=== PATIENT | male | born 1960 | race Caucasian/White ===

== ENCOUNTER → 2020-08-13 | Outpatient (CLI) | payer OTHER | LOC: M LAB 10:43 | PROVIDERS: ATTEND Internal Medicine Gastroenterology | DX: R13.12 Dysphagia, oropharyngeal phase (principal) ==

== ENCOUNTER → 2020-10-16 | Outpatient (CLI) | payer OTHER ==
[~2020-10-16] MED LIST: ADME100I SQ; ARIP1TAB; BUPR150T3; CETI10CH4; DICY10CA13; GABA600T4; LISI-538; LOVA20TA2; OMEP-221; SERT-138; TAMS1CAP17
== END ==
LOC: M LABSMTC 11:12
PROVIDERS: ATTEND Anesthesiology
DX: Z01.812 Encounter for preprocedural laboratory examination (principal); Z20.828 Contact with and (suspected) exposure to other viral communicable diseases

== ENCOUNTER 2020-10-21 11:24 | Day surgery (SDC) | payer OTHER ==
[~2020-10-21] VITALS: Ht 177.8 cm; Wt 102.5 kg
[~2020-10-21 11:24] MED LIST changes: +LIDOCAINE 2% 100MG/5ML SDV (FOR ANES.) As Ordered ONE; +NS 1,000 ML IV ONE; +fentaNYL 100 MCG/2 ML INJECTION (J3010) As Ordered ONE; +propofoL 200 MG/20 ML VIAL As Ordered ONE
[2020-10-21] MEDS ORDERED: ePHEDrine SULFATE 25 MG/5 ML(5MG/ML) SYRINGE As Ordered ONE (13:15)
--- NOTE | 2020-10-21 13:23 | ROOR ---
Patient Name: Evan Welch Procedure Date: 10/21/2020 1:04 PM Date of : 1960 Age: 60 Room: [facility] Gender: Male Note Status: Finalized Procedure: Upper GI endoscopy Indications: Dysphagia Providers: Johnnie VERDE MD Referring MD: Sushma VALENTE MD Requesting Provider: Medicines: Monitored Anesthesia Care Complications: No immediate complications. Procedure: Pre-Anesthesia Assessment: - The heart rate, respiratory rate, oxygen saturations, blood pressure, adequacy of pulmonary ventilation, and response to care were monitored throughout the procedure. The Endoscope was introduced through the mouth, and advanced to the second part of duodenum. The upper GI endoscopy was accomplished without difficulty. The patient tolerated the procedure well. Findings: No endoscopic abnormality was evident in the esophagus to explain the patient's complaint of dysphagia. It was decided, however, to proceed with dilation of the entire esophagus. The scope was withdrawn. Dilation was performed with a Iglesias dilator with no resistance at 54 Fr. The examined esophagus was normal. This was biopsied with a cold forceps for evaluation of eosinophilic esophagitis. The Z-line was variable and was found 37 cm from the incisors. This was biopsied with a cold forceps for histology. Very small (insignificant) Hiatal Hernia. The entire examined stomach was normal. The examined duodenum was normal. Impression: - No endoscopic esophageal abnormality to explain patient's dysphagia. Esophagus dilated with 54F Iglesias dilator. - Z-line variable, 37 cm from the incisors. Biopsied. - Otherwise normal esophagus. Biopsied. - Very small (insignificant) Hiatal Hernia. - Normal stomach. - Normal examined duodenum. Recommendation: - Observe patient's clinical course. - Continue present medications. - Telephone endoscopist for pathology results in 2 weeks. Procedure Code(s): --- Professional --- 79204, Esophagogastroduodenoscopy, flexible, transoral; with biopsy, single or multiple 46623, Dilation of esophagus, by unguided sound or bougie, single or multiple passes Diagnosis Code(s): --- Professional --- K22.8, Other specified diseases of esophagus R13.10, Dysphagia, unspecified CPT copyright 2019 [employer]. All rights reserved. The codes documented in this report are preliminary and upon remote coders review may be revised to meet current compliance requirements. Johnnie Verde MD Johnnie VERDE MD 10/21/2020 1:23:08 PM Electronically signed by Johnnie VERDE MD Number of Addenda: 0 Note Initiated On: 10/21/2020 1:04 PM Estimated Blood Loss: Estimated blood loss: none.
--- NOTE | 2020-10-21 13:41 | ROOR ---
Patient Name: Evan Welch Procedure Date: 10/21/2020 1:04 PM Date of : 1960 Age: 60 Room: [facility] Gender: Male Note Status: Finalized Procedure: Colonoscopy Indications: Suspected irritable bowel syndrome, Change in bowel habits Providers: Johnnie VERDE MD Referring MD: Sushma VALENTE MD Requesting Provider: Medicines: Monitored Anesthesia Care Complications: No immediate complications. Procedure: Pre-Anesthesia Assessment: - The heart rate, respiratory rate, oxygen saturations, blood pressure, adequacy of pulmonary ventilation, and response to care were monitored throughout the procedure. The Colonoscope was introduced through the anus and advanced to 10 cm into the ileum. The colonoscopy was performed without difficulty. The patient tolerated the procedure well. The quality of the bowel preparation was good. Findings: The perianal and digital rectal examinations were normal. Small Internal Hemorrhoids. Retroflexion in the right colon was performed. The colon (entire examined portion) appeared normal. The terminal ileum appeared normal. Biopsies for histology were taken with a cold forceps for evaluation of microscopic colitis. Impression: - Small Internal Hemorrhoids. - The entire examined colon is normal. - The examined portion of the ileum was normal. - Biopsies were taken with a cold forceps for evaluation of microscopic colitis. - (Irritable Bowel Syndrome/IBS suspected.) Recommendation: - Telephone endoscopist for pathology results in 2 weeks. - Continue present medications. Procedure Code(s): --- Professional --- 19241, Colonoscopy, flexible; with biopsy, single or multiple Diagnosis Code(s): --- Professional --- R19.4, Change in bowel habit CPT copyright 2019 [employer]. All rights reserved. The codes documented in this report are preliminary and upon financial services technician review may be revised to meet current compliance requirements. Johnnie Verde MD Johnnie VERDE MD 10/21/2020 1:40:50 PM Electronically signed by Johnnie VERDE MD Number of Addenda: 0 Note Initiated On: 10/21/2020 1:04 PM Estimated Blood Loss: Estimated blood loss: none.
[2020-10-21 14:15] VITALS: BP 126/67
== END 2020-10-21 14:25 | disposition home or self-care (01) ==
LOC: M OPP 11:24
PROVIDERS: ATTEND Internal Medicine Gastroenterology
DX: R19.4 Change in bowel habit (principal); K22.8 Other specified diseases of esophagus; R13.10 Dysphagia, unspecified; K64.0 First degree hemorrhoids; K44.9 Diaphragmatic hernia without obstruction or gangrene; E11.9 Type 2 diabetes mellitus without complications; Z79.899 Other long term (current) drug therapy; Z96.41 Presence of insulin pump (external) (internal)
CPT/HCPCS: 43239; 43450; 45380; 88305; J3010

== ENCOUNTER → 2021-04-04 | Outpatient (CLI) | payer OTHER ==
[~2021-04-04] MED LIST changes: +BUPR150T12; -BUPR150T3; -LIDOCAINE 2% 100MG/5ML SDV (FOR ANES.) As Ordered ONE; -LISI-538; +LISI20TA33; -NS 1,000 ML IV ONE; -fentaNYL 100 MCG/2 ML INJECTION (J3010) As Ordered ONE; -propofoL 200 MG/20 ML VIAL As Ordered ONE
--- NOTE | 2021-04-09 01:25 | ECWPNPC ---
PATIENT NAME: JENN MCELROY : 1960 GENDER: MALE VISIT DATE: 04/04/2021 DISCHARGE DATE: 04/04/21 1344 VISIT LOCKED DATE TIME: PHYSICIAN: LOS DIAZ RESOURCE: LOS DIAZ REASON FOR APPOINTMENT 1. CHRONIC BILATERAL LEG PAIN HISTORY OF PRESENT ILLNESS DEPRESSION SCREENING: PHQ-9 LITTLE INTEREST OR PLEASURE IN DOING THINGSMORE THAN HALF THE DAYS FEELING DOWN, DEPRESSED, OR HOPELESSNOT AT ALL TROUBLE FALLING OR STAYING ASLEEP, OR SLEEPING TOO MUCHNEARLY EVERY DAY FEELING TIRED OR HAVING LITTLE ENERGYNEARLY EVERY DAY POOR APPETITE OR OVEREATING SEVERAL DAYS FEELING BAD ABOUT YOURSELF-OR THAT YOU ARE A FAILURE OR HAVE LET YOURSELF OR YOUR FAMILY DOWN NOT AT ALL TROUBLE CONCENTRATING ON THINGS, SUCH READING THE NEWSPAPER OR WATCHING TELEVISION NEARLY EVERY DAY MOVING OR SPEAKING SO SLOWLY THAT OTHER PEOPLE COULD HAVE NOTICED. OR THE OPPOSITE- BEING SO FIDGETY OR RESTLESS THAT YOU HAVE BEEN MOVING AROUND A LOT MORE THAN USUALMORE THAN HALF THE DAYS THOUGHTS THAT YOU WOULD BE BETTER OFF , OR OF HURTING YOURSELF IN SOME WAY?NOT AT ALL TOTAL SCORE:14 INTERPRETATIONMODERATE DEPRESSION PHQ-2 (2015 EDITION) LITTLE INTEREST OR PLEASURE IN DOING THINGS?MORE THAN HALF THE DAYS FEELING DOWN, DEPRESSED, OR HOPELESS?NOT AT ALL TOTAL SCORE2 GENERAL: HPI 61-YEAR-OLD MALE IN FOR INITIAL PAIN CONSULT REGARDING CHRONIC BILATERAL LEG PAIN. PATIENT ADMITS THE PAIN HAS BEEN PRESENT FOR APPROXIMATELY 20 YEARS. HE WAS STARTED ON LYRICA PREVIOUSLY AND ADMITTED THAT IT WAS BENEFICIAL HOWEVER HIS INSURANCE COMPANY DENIED PAYMENT SHORTLY AFTER STARTING THIS MEDICATION. HE RATES HIS PAIN CURRENTLY AT AN 8 OUT OF 10.. -. FALL RISK SCREENING: SCREENING : NO FALLS REPORTED IN THE LAST YEAR. PAIN SCREENING: PATIENT HAS A COMPLAINT OF ACUTE OR CHRONIC PAIN :YES LOCATION OF PAIN:LEFT HIP, RIGHT HIP, LEG(S) INTENSITY OF PAIN (SCALE OF 1 TO 10):8 BASELINE IS AN 8 WHAT DOES YOUR PAIN FEEL LIKE:ACHING, BURNING, CONTINOUS, SHARP, STABBING, TENDER, THROBBING, SORE, SHOOTING DURATION:CONTINOUS PAIN IS INCREASED BY:ACTIVITIES, PROLONGED STANDING PAIN IS DECREASED BY:SITTING, OTHERS NURSING NOTE: -. PAIN CENTER INTAKE QUESTIONS: DO YOU HAVE A HISTORY OF MRSA? :NO DO YOU TAKE A BLOOD THINNERS? :NO DO YOU HAVE ANY BLEEDING DISORDERS? :NO ANY NEW NUMBNESS OR WEAKNESS IN YOUR LEGS OR ARMS? :NO ANY PACEMAKER,DEFIBRILLATOR, OR DORSAL COLUMN STIMULATOR? :NO DO YOU HAVE ANY RASHES OR OPEN SORES? :NO ARE YOU ALLERGIC TO IV DYE? :NO ARE YOU DIABETIC? :YES TYPE I JUVENILE ANY NEW PROBLEMS WITH YOUR MEDICATIONS? :NO HAVE YOU RECEIVED A VACCINE IN THE PAST 30 DAYS? :YES IF SO WHAT VACCINE AND WHEN? SECOND COVID VACCINATION 03/21/2021 DO YOU PLAN TO RECEIVE A VACCINE IN THE NEXT 21 DAYS? :NO DO YOU NEED ANY PRESCRIPTION? :NO DO YOU TAKE ANY IMMUNOSUPPRESSIVE MEDICATIONS? :NO DO YOU HAVE ANY KIDNEY OR LIVER DISEASE? :NO IS THERE A CHANCE YOU COULD BE ? :NO ARE YOU BREAST FEEDING? :NO CURRENT MEDICATIONS TAKING TAMSULOSIN HCL 0.4 MG CAPSULE 1 CAPSULE ORALLY ONCE A DAY TAKING ADMELOG 100 UNIT/ML SOLUTION DIRECTED SUBCUTANEOUS TAKING LORATADINE 10 MG TABLET 1 TABLET ORALLY ONCE A DAY TAKING ARIPIPRAZOLE 15 MG TABLET ORAL TAKING OMEPRAZOLE 40 MG CAPSULE DELAYED RELEASE ORAL TAKING GABAPENTIN 600 MG TABLET ORAL THREE TIMES DAILY NEEDED TAKING TAMSULOSIN HCL 0.4 MG CAPSULE ORAL BID TAKING LOVASTATIN 20 MG TABLET ORAL TAKING LISINOPRIL 20 MG TABLET ORAL TAKING SERTRALINE HCL 100 MG TABLET ORAL BID TAKING MECLIZINE HCL 25 MG TABLET 1 TABLET NEEDED ORALLY 3 TIMES A DAY NEEDED FOR VERTIGO EPISODES TAKING CETIRIZINE HCL 10 MG TABLET CHEWABLE 1 TABLET ORALLY ONCE A DAY TAKING EPIPEN 2-GLADIS 0.3 MG/0.3ML SOLUTION AUTO-INJECTOR DIRECTED INJECTION 1 INJECTION INTRAMUSCULARLY NEEDED FOR RESPIRATORY DISTRESS NOT-TAKING PREDNISONE 1 TAB ORAL , NOTES: 03/22/19 NOT-TAKING BUPROPION HCL ER (XL) 150 MG TABLET EXTENDED RELEASE 24 HOUR ORAL MEDICATION LIST REVIEWED AND RECONCILED WITH THE PATIENT PAST MEDICAL HISTORY ESSENTIAL HYPERTENSION PURE HYPERCHOLESTEROLEMIA DEPRESSIVE DISORDER OBESITY ANXIETY STATE CHRONIC PAIN SYNDROME DIABETIC NEUROPATHY PTSD CHARCOT'S JOINT OF FOOT HAMMER TOE DYSTROPHIA UNGULUM HALLUX VAGUS TYPE 1 DIABETES MELLITUS LOSS OF HYPOGLYCEMIC WARNING RECURRENT MAJOR DEPRESSIVE EPISODES HART'S ESOPHAGUS ALLERGIES N.K.D.A. SURGICAL HISTORY ENDOSCOPY 10/2020 KNEE ARTHROSCOPY VASECTOMY KNEE REPLACEMENT FAMILY HISTORY FATHER: , DIAGNOSED WITH UNSPECIFIED HEART DISEASE MOTHER: ALIVE, HYPERTENSION SIBLINGS: ALIVE 2 BROTHER(S) - HEALTHY. 1 SON(S) , 1 DAUGHTER(S) - HEALTHY. FATHER -LUNG CANCER. SOCIAL HISTORY GENERAL: TOBACCO USE ARE YOU A:FORMER SMOKER LATEX QUESTIONNAIRE LATEX ALLERGY : HAVE YOU EVER DEVELOPED ANY TYPE OF REACTION AFTER HANDLING LATEX PRODUCTS SUCH RUBBER GLOVES, CONDOMS, DIAPHRAGMS, BALLOONS, SOCKS, OR UNDERWEAR?NO LATEX ALLERGY : HAVE YOU EVER DEVELOPED ANY TYPE OF REACTION DURING OR AFTER DENTAL APPOINTMENT, VAGINAL/RECTAL EXAMINATION, SURGICAL PROCEDURE, OR ANY OTHER EXPOSURE?NO LATEX RISK : HAVE YOU EVER HAD ANY DIFFICULTY BREATHING OR HIVES AFTER EATING OR HANDLING ANY FRUITS, OR VEGETABLES; SUCH KIWI, BANANAS, STONE FRUITS, OR CHESTNUTSNO LATEX RISK : DO YOU HAVE A PREVIOUS PERSONAL HISTORY OF MORE THAN NINE SURGERIES, SPINA BIFIDA, OR REPEATED CATHERIZATIONS? NO LATEX RISK : ARE YOU FREQUENTLY EXPOSED TO LATEX PRODUCTS IN YOUR OCCUPATION?NO DATE ASKED : 04/04/2021 ALCOHOL USE: NO. RECREATIONAL DRUG USE DRUG USE? MARIJUANA TRIED FOR THE FIRST TIME FOR PAIN 03/22/2021 LANGUAGE LANGUAGES SPOKEN:WELSH EDUCATION LEVEL OF EDUCATION:HIGH SCHOOL LEARNING BARRIERS / SPECIAL NEEDS BARRIERS TO LEARNING?NO HEARING IMPAIRED?NO VISION IMPAIRED?NO COGNITIVELY IMPAIRED?NO READINESS TO LEARN?YES LEARNING CAPABILITIES PRESENT?YES EMOTIONAL BARRIERS?YES DEPRESSION, ANXIETY SPECIAL DEVICES?YES :CANE, BRACE LEFT KNEE BRACE UPPER CUTTER NEEDED?NO OCCUPATION: DISABLED.. HOSPITALIZATION/MAJOR DIAGNOSTIC PROCEDURE SURGERY RELATED DIABETES REVIEW OF SYSTEMS CONSTITUTIONAL: ANY RECENT FEVER NO . CHILLS NO . WEIGHT CHANGE OF UNKNOWN REASONS NO . MUSCULOSKELETAL: ANY UNUSUAL JOINT PAIN OR SWELLING NOT MENTIONED NO . SYSTEMIC LUPUS NO . ANY NEUROMUSCULAR DISORDER NOT MENTIONED NO . LYME DISEASE NO . GASTROENTEROLOGY: ANY NEW CHANGE IN BOWEL CONTROL? NO . HISTORY OF LIVER DISORDER NOT MENTIONED NO . HISTORY OF UNUSUAL ABDOMINAL PAIN OR CRAMPING NOT MENTIONED NO . NO CONSTIPATION. GENITOURINARY: ANY NEW CHANGE IN BLADDER CONTROL? NO . ANY RENAL/KIDNEY CONDITON NOT MENTIONED NO . NEUROLOGY: HISTORY OF TBI NOT MENTIONED NO . OTHER NEW NUMBNESS OR PAIN PATTERNS NOT MENTIONED NO . NEW ONSET DIZZINESS OR NEUROLOGICAL CHANGES NOT MENTIONED NO . HISTORY OF SEVERE HEADACHES NOT MENTIONED NO . HISTORY OF STROKE OR NEUROLOGICAL DISORDER NOT MENTIONED NO . CARDIOLOGY: HEART SURGERY NO . CONGESTIVE HEART FAILURE/FLUID OVERLOAD NOT MENTIONED NO . HISTORY OF CHEST PAIN,IRREGULAR HEART BEAT NOT MENTIONED NO . RESPIRATORY: SHORTNESS OF BREATH ON EXERTION, WHEEZES, UNUSUAL COUGH NOT MENTIONED NO . ENDOCRINOLOGY: ADRENAL GLAND OR THYROID DISORDERS NOT MENTIONED NO . UNUSUAL URINATION, DIZZINESS OR LETHARGY NOT MENTIONED NO . VITAL SIGNS WT 231 LBS, HT 62 IN, BMI 42.25 INDEX, BP 128/73 MM HG, HR 67 /MIN, RR 18 /MIN, TEMP 98.1 F, OXYGEN SAT % 94%, SAFE IN ENV? (Y/N) YES, NA INITIALS UT 12:51, REVIEWED BY: BURTON JACOB MA. EXAMINATION GENERAL EXAMINATION: GENERALNO ACUTE DISTRESS, WELL NOURISHED AND HYDRATED. PSYCHAPPROPRIATE MOOD AND AFFECT . LUNGS:CLEAR TO AUSCULTATION BILATERALLY, NO WHEEZES, RHONCHI, RALES. HEART:NO MURMURS, REGULAR RATE AND RHYTHM. BACK: POINT TENDER ALONG LUMBAR SPINE, SURROUNDING SKIN SHOWS NO ERYTHEMA, ECCHYMOSIS, INCREASED WARMTH, AND/OR SKIN ERUPTIONS NOTED. POSITIVE BILATERAL MODIFIED SLR. ASSESSMENTS LOW BACK PAIN - M54.5 (PRIMARY) TREATMENT OTHERS START LYRICA CAPSULE, 75 MG, 1 CAPSULE, ORALLY, TWICE DAILY, 30 DAYS, 60 NOTES: 61-YEAR-OLD MALE IN FOR INITIAL PAIN CONSULT AND BILATERAL LEG PAIN. GIVEN PRESENTING SYMPTOMS RECOMMEND TAPERING DOSE OF GABAPENTIN FOLLOWS 600 MG TWICE A DAY X1 WEEK THEN 600 MG DAILY X1 WEEK THEN 600 MG EVERY OTHER DAY X1 WEEK THEN STOP. FURTHER RECOMMENDED STARTING LYRICA 75 MG TWICE A DAY PATIENT HAS TRIALED AND FAILED GABAPENTIN WITH FOLLOW-UP IN ONE MONTH TO DETERMINE EFFICACY TREATMENT. PATIENT HAS EXPRESSED UNDERSTANDING OF AND WAS IN AGREEMENT WITH TREATMENT PLAN. GIVEN TIME TO ASK QUESTIONS AND EXPRESS CONCERNS. PROCEDURE CODES FA211 ESTABILISHED PATIENT [facility] CHARGE DISPOSITION & COMMUNICATION FOLLOW UP 4 WEEKS (REASON: NEW MED ) ELECTRONICALLY SIGNED BY DARLENE BACA ON 04/08/2021 AT 11:01 AM EDT DISCLAIMER : THIS IS A VISIT SUMMARY EXTRACTED FROM THE [email or web address] CHART. IT IS NOT A COPY OF THE [email or web address] PROGRESS NOTE. KOLE
== END ==
LOC: M PAIN 13:00
PROVIDERS: ATTEND Family Medicine
DX: M54.5 Low back pain (principal); G89.29 Other chronic pain; E10.9 Type 1 diabetes mellitus without complications; Z86.59 Personal history of other mental and behavioral disorders; Z87.891 Personal history of nicotine dependence; E66.01 Morbid (severe) obesity due to excess calories; Z68.41 Body mass index [BMI] 40.0-44.9, adult; Z79.899 Other long term (current) drug therapy

== ENCOUNTER → 2021-04-30 | Outpatient (CLI) | payer OTHER ==
--- NOTE | 2021-05-02 02:37 | ECWPNPC ---
PATIENT NAME: JENN MCELROY : 1960 GENDER: MALE VISIT DATE: 04/30/2021 DISCHARGE DATE: 04/30/21 1442 VISIT LOCKED DATE TIME: PHYSICIAN: LOS DIAZ RESOURCE: LOS DIAZ REASON FOR APPOINTMENT 1. NEW MED HISTORY OF PRESENT ILLNESS GENERAL: HPI 61-YEAR-OLD MALE IN FOR CHRONIC PAIN FOLLOW-UP. AT LAST CLINIC VISIT PATIENT WAS STARTED ON LYRICA AND HE ADMITS TODAY THAT THIS HAS BEEN BENEFICIAL HOWEVER HE STILL EXPERIENCES BREAKTHROUGH PAIN. HE RATES HIS PAIN CURRENTLY AT AN 8 OUT OF 10.. -. FALL RISK SCREENING: SCREENING : NO FALLS REPORTED IN THE LAST YEAR. PAIN SCREENING: PATIENT HAS A COMPLAINT OF ACUTE OR CHRONIC PAIN :YES LOCATION OF PAIN:LEG(S) INTENSITY OF PAIN (SCALE OF 1 TO 10):8 WHAT DOES YOUR PAIN FEEL LIKE:BURNING, THROBBING, SHOOTING, OTHER DURATION:CONTINOUS, AWAKENS FROM SLEEP PAIN IS INCREASED BY:ACTIVITIES, PROLONGED STANDING PAIN IS DECREASED BY:USE OF PAIN MEDICATIONS, SITTING NURSING NOTE: -. PAIN CENTER INTAKE QUESTIONS: DO YOU HAVE A HISTORY OF MRSA? :NO DO YOU TAKE A BLOOD THINNERS? :NO DO YOU HAVE ANY BLEEDING DISORDERS? :NO ANY NEW NUMBNESS OR WEAKNESS IN YOUR LEGS OR ARMS? :NO ANY PACEMAKER,DEFIBRILLATOR, OR DORSAL COLUMN STIMULATOR? :NO DO YOU HAVE ANY RASHES OR OPEN SORES? :NO ARE YOU ALLERGIC TO IV DYE? :NO ARE YOU DIABETIC? :YES TYPE I JUVENILE ANY NEW PROBLEMS WITH YOUR MEDICATIONS? :NO HAVE YOU RECEIVED A VACCINE IN THE PAST 30 DAYS? :NO SECOND COVID VACCINATION 03/07/2021 DO YOU PLAN TO RECEIVE A VACCINE IN THE NEXT 21 DAYS? :NO DO YOU NEED ANY PRESCRIPTION? :NO DO YOU TAKE ANY IMMUNOSUPPRESSIVE MEDICATIONS? :NO DO YOU HAVE ANY KIDNEY OR LIVER DISEASE? :NO IS THERE A CHANCE YOU COULD BE ? :NO ARE YOU BREAST FEEDING? :NO CURRENT MEDICATIONS TAKING TAMSULOSIN HCL 0.4 MG CAPSULE 1 CAPSULE ORALLY ONCE A DAY TAKING ADMELOG 100 UNIT/ML SOLUTION DIRECTED SUBCUTANEOUS TAKING LORATADINE 10 MG TABLET 1 TABLET ORALLY ONCE A DAY TAKING ARIPIPRAZOLE 15 MG TABLET ORAL TAKING OMEPRAZOLE 40 MG CAPSULE DELAYED RELEASE ORAL TAKING GABAPENTIN 600 MG TABLET ORAL THREE TIMES DAILY NEEDED TAKING TAMSULOSIN HCL 0.4 MG CAPSULE ORAL BID TAKING LOVASTATIN 20 MG TABLET ORAL TAKING LISINOPRIL 20 MG TABLET ORAL TAKING SERTRALINE HCL 100 MG TABLET ORAL BID TAKING MECLIZINE HCL 25 MG TABLET 1 TABLET NEEDED ORALLY 3 TIMES A DAY NEEDED FOR VERTIGO EPISODES TAKING CETIRIZINE HCL 10 MG TABLET CHEWABLE 1 TABLET ORALLY ONCE A DAY TAKING EPIPEN 2-GLADIS 0.3 MG/0.3ML SOLUTION AUTO-INJECTOR DIRECTED INJECTION 1 INJECTION INTRAMUSCULARLY NEEDED FOR RESPIRATORY DISTRESS TAKING LYRICA 75 MG CAPSULE 1 CAPSULE ORALLY TWICE DAILY NOT-TAKING PREDNISONE 1 TAB ORAL , NOTES: 03/22/19 NOT-TAKING BUPROPION HCL ER (XL) 150 MG TABLET EXTENDED RELEASE 24 HOUR ORAL MEDICATION LIST REVIEWED AND RECONCILED WITH THE PATIENT PAST MEDICAL HISTORY ESSENTIAL HYPERTENSION PURE HYPERCHOLESTEROLEMIA DEPRESSIVE DISORDER OBESITY ANXIETY STATE CHRONIC PAIN SYNDROME DIABETIC NEUROPATHY PTSD CHARCOT'S JOINT OF FOOT HAMMER TOE DYSTROPHIA UNGULUM HALLUX VAGUS TYPE 1 DIABETES MELLITUS LOSS OF HYPOGLYCEMIC WARNING RECURRENT MAJOR DEPRESSIVE EPISODES HART'S ESOPHAGUS ALLERGIES N.K.D.A. SOCIAL HISTORY GENERAL: TOBACCO USE ARE YOU A:FORMER SMOKER LATEX QUESTIONNAIRE LATEX ALLERGY : HAVE YOU EVER DEVELOPED ANY TYPE OF REACTION AFTER HANDLING LATEX PRODUCTS SUCH RUBBER GLOVES, CONDOMS, DIAPHRAGMS, BALLOONS, SOCKS, OR UNDERWEAR?NO LATEX ALLERGY : HAVE YOU EVER DEVELOPED ANY TYPE OF REACTION DURING OR AFTER DENTAL APPOINTMENT, VAGINAL/RECTAL EXAMINATION, SURGICAL PROCEDURE, OR ANY OTHER EXPOSURE?NO LATEX RISK : HAVE YOU EVER HAD ANY DIFFICULTY BREATHING OR HIVES AFTER EATING OR HANDLING ANY FRUITS, OR VEGETABLES; SUCH KIWI, BANANAS, STONE FRUITS, OR CHESTNUTSNO LATEX RISK : DO YOU HAVE A PREVIOUS PERSONAL HISTORY OF MORE THAN NINE SURGERIES, SPINA BIFIDA, OR REPEATED CATHERIZATIONS? NO LATEX RISK : ARE YOU FREQUENTLY EXPOSED TO LATEX PRODUCTS IN YOUR OCCUPATION?NO DATE ASKED : 04/30/2021 ALCOHOL USE: NO. RECREATIONAL DRUG USE DRUG USE? 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 REVIEW OF SYSTEMS CONSTITUTIONAL: ANY RECENT FEVER NO . CHILLS NO . WEIGHT CHANGE OF UNKNOWN REASONS NO . GASTROENTEROLOGY: NEW UNEXPLAINABLE CHANGES IN BOWEL CONTROL NO . CONSTIPATION NO . GENITOURINARY: ANY NEW CHANGE IN BLADDER CONTROL? NO . NEUROLOGY: NEW ONSET DIZZINESS OR NEUROLOGICAL CHANGES NOT MENTIONED NO . NEW NUMBNESS OR PAIN PATTERNS NOT MENTIONED AND PERTINENT TO TODAY'S VISIT NO . CARDIOLOGY: NEW CHEST PRESSURE NO . PATIENT DENIES NO . RESPIRATORY: UNEXPLAINABLE COUGH NO . NEW SHORTNESS OF BREATH NO . VITAL SIGNS WT 235 LBS, HT 62 IN, BMI 42.98 INDEX, BP 130/67 MM HG, HR 80 /MIN, RR 18 /MIN, TEMP 98.1 F, OXYGEN SAT % 96%, SAFE IN ENV? (Y/N) YES, NA INITIALS LA 14:11, REVIEWED BY: BURTON JACOB MA. EXAMINATION GENERAL EXAMINATION: GENERALNO ACUTE DISTRESS, WELL NOURISHED AND HYDRATED. PSYCHAPPROPRIATE MOOD AND AFFECT . LUNGS:CLEAR TO AUSCULTATION BILATERALLY, NO WHEEZES, RHONCHI, RALES. HEART:NO MURMURS, REGULAR RATE AND RHYTHM. ASSESSMENTS LOW BACK PAIN - M54.5 (PRIMARY) TREATMENT LOW BACK PAIN STOP GABAPENTIN TABLET, 600 MG, ORAL, THREE TIMES DAILY NEEDED INCREASE LYRICA CAPSULE, 100 MG, 1 CAPSULE, ORALLY, TWICE DAILY, 30 DAYS, 60 NOTES: 61-YEAR-OLD MALE IN FOR CHRONIC PAIN FOLLOW-UP. GIVEN PRESENTING SYMPTOMS RECOMMENDED INCREASING LYRICA TO 100 MG TWICE A DAY WITH FOLLOW-UP IN 3 MONTHS. PATIENT HAS EXPRESSED UNDERSTANDING OF AND WAS IN AGREEMENT WITH TREATMENT PLAN. GIVEN TIME ASK QUESTIONS AND EXPRESS CONCERNS. [employer] REGISTRY REVIEWED AND DEMONSTRATES COMPLLIANCE. (REF # [id number] ) BRINGS IN MEDICATIONS WHICH IS APPROPRIATE FOR WHAT WAS DISPENSED. RECENT URINE TOXICOLOGY REVIEWED. NO UNAUTHORIZED MEDICATIONS. NO ILLICIT SUBSTANCES AND PRESCRIBED MEDICATIONS WERE PRESENT. PROCEDURE CODES FA211 ESTABILISHED PATIENT [facility] CHARGE DISPOSITION & COMMUNICATION FOLLOW UP 3 MONTHS (REASON: BACK PAIN ) ELECTRONICALLY SIGNED BY DARLENE BACA ON 05/01/2021 AT 08:28 AM EDT DISCLAIMER : THIS IS A VISIT SUMMARY EXTRACTED FROM THE [employer] CHART. IT IS NOT A COPY OF THE [employer] PROGRESS NOTE. KOLE
== END ==
LOC: M PAIN 14:15
PROVIDERS: ATTEND Family Medicine
DX: M54.5 Low back pain (principal); G89.29 Other chronic pain; E10.40 Type 1 diabetes mellitus with diabetic neuropathy, unspecified; Z86.59 Personal history of other mental and behavioral disorders; Z87.891 Personal history of nicotine dependence; E66.01 Morbid (severe) obesity due to excess calories; Z68.41 Body mass index [BMI] 40.0-44.9, adult; Z79.4 Long term (current) use of insulin; Z79.899 Other long term (current) drug therapy

== ENCOUNTER → 2021-08-01 | Outpatient (CLI) | payer OTHER ==
[~2021-08-01] MED LIST changes: +ARIP10TA32; -ARIP1TAB
== END ==
LOC: M PAIN 14:00
PROVIDERS: ATTEND Anesthesiology
DX: M54.5 Low back pain (principal); M79.10 Myalgia, unspecified site; M79.18 Myalgia, other site; M54.6 Pain in thoracic spine; E10.40 Type 1 diabetes mellitus with diabetic neuropathy, unspecified; I10 Essential (primary) hypertension; E78.00 Pure hypercholesterolemia, unspecified; F32.9 Major depressive disorder, single episode, unspecified; E66.9 Obesity, unspecified; F41.9 Anxiety disorder, unspecified; G89.4 Chronic pain syndrome; F43.10 Post-traumatic stress disorder, unspecified; K22.70 Barrett's esophagus without dysplasia; E10.610 Type 1 diabetes mellitus with diabetic neuropathic arthropathy; Z87.891 Personal history of nicotine dependence; Z79.899 Other long term (current) drug therapy

== ENCOUNTER → 2021-08-01 | Outpatient (CLI) | payer OTHER ==
--- NOTE | 2021-08-01 16:16 | REP ---
INDICATION: LOW BACK PAIN. COMPARISON: None. TECHNIQUE: Three views of the thoracic spine. FINDINGS: Thoracic vertebral body heights are preserved. Alignment is normal. There is moderate discogenic spurring anteriorly and along the right lateral margin of the mid and lower thoracic spine levels. Pedicles and posterior elements are intact. Swimmer's lateral view shows no additional abnormality. No paravertebral soft tissue mass is seen. IMPRESSION: Moderate degenerative disc changes in the thoracic spine. No acute bony abnormality. <Electronically signed by Dedrick Hernandez > 08/01/21 [id number]
--- NOTE | 2021-08-01 16:18 | REP ---
INDICATION: LOW BACK PAIN. COMPARISON: None. TECHNIQUE: Seven views of the lumbar spine are presented including flexion extension lateral views. FINDINGS: Lumbar vertebral body heights are preserved. No subluxation or instability is seen on flexion extension views. There is no evidence of spondylolysis or spondylolisthesis. There is mild degenerative disc change at L3-4 and L4-5. Discogenic spurring is seen at the thoracolumbar junction as well. Pedicles and posterior elements are intact. Psoas margins are symmetric. Sacrum and SI joints are unremarkable. There is a 10 mm intrarenal calculus in the right kidney. IMPRESSION: Mild degenerative spondylosis changes. Intrarenal nephrolithiasis right kidney. <Electronically signed by Dedrick Hernandez > 08/01/21 [id number]
== END ==
LOC: M RAD 15:33
PROVIDERS: ATTEND Anesthesiology
DX: N20.0 Calculus of kidney (principal); M54.5 Low back pain

== ENCOUNTER → 2021-08-19 | Outpatient (CLI) | payer OTHER ==
--- NOTE | 2021-08-19 13:47 | REP ---
INDICATION: PROSTATE Difficulty urinating. COMPARISON: None. TECHNIQUE: Transrectal ultrasound examination. FINDINGS: Examination demonstrates mildly heterogeneous gland measuring 3.9 x 2.1 x 4.2 cm (18 ml). No significant focal lesions are identified. IMPRESSION: 1. Relatively normal appearing prostate gland. <Electronically signed by Rene Field > 08/19/21 [id number]
--- NOTE | 2021-08-19 14:04 | REP ---
INDICATION: HESITANCY OF MICTURITION COMPARISON: None TECHNIQUE: Real time B-mode ultrasound examination using curved array transducer. FINDINGS: Bladder is normal in appearance without wall thickening or mass lesion. Bilateral ureteral jets are identified. Prevoid bladder measures 10.3 x 6.4 x 6.8 cm (293 cc). Postvoid bladder measures 3.9 x 3.5 x 1.7 cm (59 cc). Postvoid residual: 20% IMPRESSION: 1. Mildly prominent postvoid residual volume to the bladder. 2. Normal anatomical appearance of the bladder by ultrasound. <Electronically signed by Rene Field > 08/19/21 [id number]
== END ==
LOC: M RAD 12:54
PROVIDERS: ATTEND Internal Medicine
DX: R39.11 Hesitancy of micturition (principal)

== ENCOUNTER → 2022-06-04 | Outpatient (REF) | payer MEDICARE ==
[~2022-06-04] MED LIST changes: -OMEP-221; +OMEP40CA5
== END ==
LOC: M LAB REF 17:56
PROVIDERS: ATTEND Otolaryngology
DX: H70.001 Acute mastoiditis without complications, right ear (principal)

== ENCOUNTER → 2022-07-24 | Outpatient (REF) | payer MEDICARE | LOC: M LAB REF 16:30 | PROVIDERS: ATTEND Otolaryngology | DX: H70.001 Acute mastoiditis without complications, right ear (principal) ==

== ENCOUNTER → 2023-01-18 | Outpatient (CLI) | payer MEDICARE, OTHER ==
[~2023-01-18] MED LIST changes: +ARIP1TAB10 PO; -GABA600T4; +GABA600T4 PO; -LISI20TA33; +LISI20TA33 PO; -LOVA20TA2; +LOVA20TA2 PO; +OMEP-173 PO; -TAMS1CAP17; +TAMS1CAP17 PO; +ZOLO100T PO
== END ==
LOC: M LABSMTC 10:56
PROVIDERS: ATTEND Anesthesiology
DX: Z01.812 Encounter for preprocedural laboratory examination (principal)

== ENCOUNTER 2023-01-22 12:24 | Day surgery (SDC) | payer MEDICARE, OTHER ==
[~2023-01-22] VITALS: Ht 175.3 cm; Wt 98.5 kg
[~2023-01-22 12:24] MED LIST changes: +LIDOCAINE 2% 100MG/5ML SDV (FOR ANES.) As Ordered ONE; +NS 1,000 ML IV ONE; +fentaNYL 100 MCG/2 ML INJECTION As Ordered ONE; +propofoL 200 MG/20 ML VIAL As Ordered ONE
[2023-01-22 15:15] VITALS: BP 122/58
== END 2023-01-22 17:40 | disposition home or self-care (01) ==
LOC: M OPP 12:24
PROVIDERS: ATTEND Internal Medicine Gastroenterology
DX: K22.70 Barrett's esophagus without dysplasia (principal); R13.14 Dysphagia, pharyngoesophageal phase; R13.12 Dysphagia, oropharyngeal phase; K22.89 Other specified disease of esophagus; I10 Essential (primary) hypertension; E78.5 Hyperlipidemia, unspecified; E10.9 Type 1 diabetes mellitus without complications; K21.9 Gastro-esophageal reflux disease without esophagitis; M19.90 Unspecified osteoarthritis, unspecified site; F32.A Depression, unspecified; G62.9 Polyneuropathy, unspecified; G47.30 Sleep apnea, unspecified; N40.0 Benign prostatic hyperplasia without lower urinary tract symptoms; Z87.891 Personal history of nicotine dependence; Z79.4 Long term (current) use of insulin; Z79.899 Other long term (current) drug therapy; Z80.1 Family history of malignant neoplasm of trachea, bronchus and lung
CPT/HCPCS: 43239; 43450; 88305; J3010

== ENCOUNTER 2024-10-16 11:14 | Day surgery (SDC) | payer MEDICARE, OTHER ==
[~2024-10-16] VITALS: Ht 177.8 cm; Wt 97.1 kg
[~2024-10-16 11:14] MED LIST changes: -ARIP10TA32; +ARIP10TA63; +DICY-61; -DICY10CA13; +GABA-1490 PO; -GABA600T4 PO; +LOVA40TA PO; -NS 1,000 ML IV ONE; +OLME5TAB24 PO
[2024-10-16 12:48] VITALS: TEMP 97.4
[2024-10-16 13:09] VITALS: BP 144/71; O2SAT 93
== END 2024-10-16 13:10 | disposition home or self-care (01) ==
LOC: M OPP 11:14
PROVIDERS: ATTEND Internal Medicine Gastroenterology
DX: K22.70 Barrett's esophagus without dysplasia (principal); K22.89 Other specified disease of esophagus; I10 Essential (primary) hypertension; E78.5 Hyperlipidemia, unspecified; E10.40 Type 1 diabetes mellitus with diabetic neuropathy, unspecified; K21.9 Gastro-esophageal reflux disease without esophagitis; M19.90 Unspecified osteoarthritis, unspecified site; F32.A Depression, unspecified; G47.30 Sleep apnea, unspecified; Z87.891 Personal history of nicotine dependence; Z79.4 Long term (current) use of insulin; Z79.899 Other long term (current) drug therapy
CPT/HCPCS: 43239; 43249; 88305; J3010